=== PATIENT | male | born 1965 | race African-American/Black ===

== ENCOUNTER 2017-08-20 06:24 | Inpatient (IN) | payer BC ==
[2017-08-20] MEDS ORDERED: MIDAZOLAM HCL 2 MG/2 ML SINGLE DOSE VIAL ONE (06:32)
[2017-08-20] MEDS ORDERED: DEXAMETHASONE SOD PHOSPHATE/PF 10 MG/ML SDV ONE (06:32)
[2017-08-20] MEDS ORDERED: SODIUM CHLORIDE 0.9% P/F 10 ML VIAL IJ ONE (06:32)
[2017-08-20] MEDS ORDERED: ROPIVACAINE HCL 0.5% 30ML VIAL ONE (06:32)
[2017-08-20 06:49] VITALS: BMI 22.1
[2017-08-20] MEDS ORDERED: TRANEXAMIC ACID 1000 MG/10 ML VIAL IVPUSH ONE (06:49)
[2017-08-20] MEDS ORDERED: GABAPENTIN 300 MG CAPSULE (FP) PO ONE (06:49)
[2017-08-20] MEDS ORDERED: CEFAZOLIN 2 GM in DEXTROSE 5%-WATER - 50 ML IVPB ONE (06:49)
[2017-08-20] MEDS ORDERED: CELECOXIB 200 MG CAPSULE PO ONE (06:49)
[2017-08-20] MEDS ORDERED: oxyCODONE HCL 10 MG SUSTAINED ACTING TABLET ONE (07:00)
[2017-08-20] MEDS ORDERED: VANCOMYCIN 1,000 MG VIAL (RESTRICTED TO ID ONLY) ONE (07:15)
[2017-08-20] MEDS ORDERED: ceFAZolin SODIUM 1 GM VIAL ONE (07:15)
[2017-08-20] MEDS ORDERED: oxyCODONE HCL 10 MG SUSTAINED ACTING TABLET PO ONE (07:30)
--- NOTE | 2017-08-20 07:52 | HP ---
Satellite PMH - Chief Complaint Chief Complaint: left knee pain - Past Medical History Allergies/Adverse Reactions: Allergies Allergy/AdvReac Type Severity Reaction Status Date / Time No Known Drug Allergies Allergy Verified 04/05/16 15:53 ELECTRIC CRANE OPERATOR: Yes: Alzheimer's, CVA, Dementia, Migraine, Multiple Sclerosis, Peripheral Neuropathy, Parkinson's, Seizure, Syncope, TIA, Vertigo, Other Cardiovascular: Yes: AFIB, Aneurysm, Aortic Insufficiency, Aortic Stenosis, CAD , CHF, Deep Vein Thrombosis, HTN, Hyperlipdemia, MO, Mitral Insufficiency, Mitral Stenosis, Murmur, Pulmonary Hypertension, Other - Current Medications Current Medications: Home Medications Medication Instructions Recorded Ibuprofen [Advil -] 400 mg PO ASDIR PRN 08/13/17 Satellite Physical Exam - Physical Examination Vital Signs: Vital Signs Period Temp Pulse Resp BP Sys/Hinds Pulse Ox Last 24 Hr 97.8 F 76 18 137/90 General Appearance: Well Nourished, Well Developed, Alert & Oriented x3 ENT: Clear Lung: Normal air movement Heart: Regular rate & rhythm Extremities: Other (left knee- + swelling, + ttp, decr rom, nvi xrays show grade 4 tricompartmental djd) Neurological: Intact, Alert, Oriented Satellite Impression/Plan - Impression/Plan Impression: left knee djd Operative Procedure: left j carlos tkr Date to be Performed: 08/20/17
[2017-08-20] MEDS ORDERED: BUPIVACAINE HCL/PF 0.5% (5MG/ML) 10 ML VIAL ONE (08:08)
[2017-08-20] MEDS ORDERED: ONDANSETRON 4 MG/2 ML VIAL IVPUSH PRN (09:59)
[2017-08-20] MEDS ORDERED: MAGNESIUM HYDROX 2400MG/30ML ORAL SUSPENSION 30 ML CUP PO PRN (09:59)
[2017-08-20] MEDS ORDERED: MAG HYDROX/AL HYDROX/SIMETH 30 ML UNIT-DOSE CUP PO PRN (09:59)
[2017-08-20] MEDS ORDERED: LACTATED RINGERS SOLUTION 1,000 ML IV SCH (10:00)
--- NOTE | 2017-08-20 10:02 | OP ---
Operative Note - Note: Operative Date: 08/20/17 (rodney) Pre-Operative Diagnosis: left knee djd Operation: left j carlos tkr Post-Operative Diagnosis: Same as Pre-op Surgeon: Ag Kuhn Software Test Engineer: Frantz Rocha Anesthesiologist/WATCH MECHANIC: Rajiv Merlos Anesthesia: Spinal, Local Specimens Removed: bone fragments Estimated Blood Loss (mls): 100 Operative Report Dictated: Yes
[2017-08-20] MEDS ORDERED: oxyCODONE HCL 5 MG TABLET PO PRN (11:05)
[2017-08-20] MEDS: ACETAMINOPHEN 325 MG TABLET (FP) PO SCH ×3 (11:17→23:02)
[2017-08-20] MEDS: SENNOSIDES/DOCUSATE COMBO (SENNA PLUS) TABLET (UD) PO SCH ×2 (13:41→22:01)
[2017-08-20] MEDS: MULTIVITAMINS (DAILY MVI) TABLET (FP) PO SCH (13:42)
[2017-08-20] MEDS: PANTOPRAZOLE 40 MG TABLET (FP) PO SCH (13:42)
--- NOTE | 2017-08-20 14:40 | SPEC ---
DATE OF OPERATION: 08/20/2017 PREOPERATIVE DIAGNOSIS: Degenerative joint disease, left knee. POSTOPERATIVE DIAGNOSIS: Degenerative joint disease, left knee. PROCEDURE: Left total knee replacement with robotic-assisted navigation (Makoplasty). SURGICAL ATTENDING: Doyle Pugh MD MANUFACTURING COST ESTIMATOR: PEPITO Brown and Ag Kuhn MD ANESTHESIA: Regional and spinal. CLOSURE: A cemented Triathlon knee system with a 3 femur, 3 tibia, 11 polyethylene, 35 patella, number 1 Vicryl fascia, 0 and 2-0 subcutaneous, 3-0 Monocryl subcuticular with skin glue for skin, 4-0 undyed Vicryl for pin sites. ESTIMATED BLOOD LOSS: Negligible. TOURNIQUET TIME: 21 minutes COMPLICATIONS: None. CONDITION: To recovery room in stable condition. DESCRIPTION OF OPERATIVE PROCEDURE: Patient was taken to the operating room on August 20, 2017. Regional and general anesthesia was administered by the anesthesiologist. IV Kefzol and TXA were administered by the anesthesiologist. Well-padded pneumatic tourniquet was placed on the proximal thigh. The left lower extremity was prepped and draped in the usual sterile fashion. The leg was exsanguinated with an Esmarch bandage, and tourniquet was inflated to 275 mmHg. A 12 to 15-cm longitudinal midline incision was incised while centered over the patella. The dissection was carried down to the level of the extensor mechanism with sufficient flaps made to adequately perform the procedure. A medial parapatellar arthrotomy was then performed. We made a cuff of tissue on the patella for later closure. The patella was inverted, the knee was flexed up. The fat pad was excised. The subperiosteal dissection was on the anteromedial proximal tibia around towards the direction of the MCL. The ACL and the PCL were transected and debrided. The meniscal remnants of the medial and lateral meniscus were debrided and removed. This allowed the knee to be able to "be brought forward." The checkpoints were malleted into the tibia and into the femur. Two threaded pins were drilled anteroposteriorly proximal to the knee through the previous incision, through the anterior cortex, then just engaging the posterior cortex. To these pins was assembled the femoral navigation array. One handbreadth below the tibial tubercle, 2 stab incisions were used to drill 2 threaded pins in parallel fashion into the tibia, again through the anterior cortex and just engaging the posterior cortex. To these pins was fastened the tibial arrays. The knee was then registered with the navigation device with center of rotation of the hip, medial and lateral malleoli, both checkpoints, and multiple points on both the femur and the tibia to ensure excellent registration. The navigation device was directed off the "top of the bubbles" on both the femur and the tibia. The navigation passed within less than 0.5 mm to plan. The knee was then thoroughly inspected to remove all osteophytes both medially, laterally, and on the femur and the tibia, and whatever osteophytes were available for dissection. The knee was then taken to extension and to flexion, and stressed in both varus and valgus to assess flexion gaps. The virtual position of the components on the navigation device were then manipulated to optimize the position and to ensure equal gaps in both flexion and extension, and both medially and laterally. The robot was then brought into the field and was registered. The cuts were then made both on the femur and on the tibia as to plan. All osteophytes posteriorly were then removed as well. The gaps were then measured again in flexion and extension to be equal in both flexion and extension and medial and laterally. The femoral notch was then made, as we were doing a posterior stabilizing component, with the appropriate sized box. Trial reduction of the femur achieved excellent [id number] fit. A tibial baseplate of appropriate polyethylene thickness was "floated in the knee." It was ensured to be in the excellent position by navigation devices and was pinned in place. The knee was taken through a range of motion, and found to have excellent stability throughout flexion and extension. The patella was calibrated for thickness and osteotomized down to the appropriate level. The appropriate lollipop was used to drill the lug holes in the patella and the trial button was applied. The knee was taken through a range of motion and found to have excellent tracking of the patella, and patella from full extension to full flexion. Trial components were removed, the keel was punched and drilled, and a sclerotic bone on the tibia was drilled to help with cement interdigitation. The knee was thoroughly irrigated with the pulse antibiotic ranch cook. The real components were then cemented in using monitored arrangement cement techniques with antibiotic cement, and pressurization and extension. After the cement was hardened, the knee was thoroughly inspected to remove any extra cement. The real polyethylene component was then clipped into place. Range of motion, stability, and tracking were as described earlier. The checkpoints and the pins were removed. The knee was thoroughly irrigated with antibiotic irrigation. Vancomycin powder was placed into the knee for antibiotic prophylaxis. The medial parapatellar arthrotomy was then closed using number 1 Vicryl interrupted suture. After closure of the deep layer, the knee was taken through a range of motion, and found to have excellent stability of the patella with no dislocation and no undue tension on the repair. The subcutaneous was pulse antibiotic irrigated, and was then closed with 2-0 Vicryl, 3-0 Monocryl subcuticular with the skin glue for the skin. The distal tibial pin site was irrigated thoroughly as well and then closed with 4-0 undyed Vicryl. A sterile Aquacel dressing was applied, followed by a Wolff dressing. Tourniquet was deflated. Total tourniquet time was approximately 75 minutes. No complications. Patient was awakened from anesthesia and transferred to recovery room in stable condition. Postoperative x-rays revealed excellent position of the components. Dorothy [id number]
[2017-08-20] MEDS: CEFAZOLIN 2 GM/D5W 2 GM/50 ML ML IVPB SCH ×2 (16:14→23:02)
[2017-08-20] MEDS: oxyCODONE HCL 5 MG TABLET PO PRN (19:53)
[2017-08-21] MEDS: ACETAMINOPHEN 325 MG TABLET (FP) PO SCH ×4 (05:47→16:50)
[2017-08-21] MEDS: oxyCODONE HCL 5 MG TABLET PO PRN ×5 (05:48→20:21)
--- NOTE | 2017-08-21 08:41 | PN ---
Progress Note (short form) - Note Progress Note: Ortho Pt seen and examined s/p left j carlos tkr pod #1 Selected Entries 08/21/17 06:00 Temperature 97.6 F Pulse Rate 74 Respiratory 20 Rate Blood Pressure 142/74 Laboratory Tests 08/21/17 07:55 WBC Pending Hgb Pending Hct Pending Plt Count Pending dressing c/d/i, calf soft, nt rom 0-70, nvi a/p PT dvt ppx pain control d/c home tomorrow if stable
[2017-08-21 08:47] LABS: MCH 30.4 pg (25.7-33.7); MCHC 33.9 g/dl (32.0-35.9); MEAN CELL VOLUME 89.6 fl (80-96); MEAN PLT VOLUME 8.2 fl (7.5-11.1); PLATELET COUNT 190 K/MM3 (134-434); RDW 13.5 % (11.9-15.9); WHITE BLOOD COUNT 11.6 K/mm3 (4.0-10.8)
[2017-08-21] MEDS: ASPIRIN 325 MG TABLET PO SCH (08:54)
[2017-08-21] MEDS: MULTIVITAMINS (DAILY MVI) TABLET (FP) PO SCH (09:55)
[2017-08-21] MEDS: SENNOSIDES/DOCUSATE COMBO (SENNA PLUS) TABLET (UD) PO SCH ×2 (09:55→21:42)
[2017-08-21] MEDS: PANTOPRAZOLE 40 MG TABLET (FP) PO SCH (09:55)
--- NOTE | 2017-08-21 12:00 | PN ---
Progress Note (short form) - Note Progress Note: S: Pt. doing well without complaints O: VAS7-8/10 (states that's tolerable) A/P: POD#1 s/p Left TKR 1. continue pain meds as ordered. Encouraged use to get the pain level down 2. No anesthetic complications
[2017-08-22] MEDS: oxyCODONE HCL 5 MG TABLET PO PRN ×3 (05:00→12:14)
[2017-08-22 06:14] VITALS: BP 121/82; PULSE 83; TEMP 99.1
--- NOTE | 2017-08-22 08:07 | PN ---
Progress Note (short form) - Note Progress Note: Ortho Pt seen and examined s/p left j carlos tkr pod #2 Selected Entries 08/22/17 06:00 Temperature 99.1 F Pulse Rate 83 Respiratory 18 Rate Blood Pressure 121/82 Laboratory Tests 08/21/17 07:55 WBC 11.6 H Hgb 12.4 Hct 36.6 Plt Count 190 dressing c/d/i, calf soft, nt rom 0-70, nvi a/p PT dvt ppx pain control d/c home today f/u in 1 week
[2017-08-22] MEDS: ASPIRIN 325 MG TABLET PO SCH (08:08)
--- NOTE | 2017-08-22 08:08 | DS ---
Physical Examination Vital Signs: Vital Signs Temperature 99.1 F 08/22/17 06:00 Pulse Rate 83 08/22/17 06:00 Respiratory Rate 18 08/22/17 06:00 Blood Pressure 121/82 08/22/17 06:00 O2 Sat by Pulse Oximetry (%) 97 08/22/17 06:13 Labs: CBC, BMP 08/21/17 07:55 Discharge Summary Reason For Visit: OSTEOARTHRITIS Procedures: Principal: s/p left j carlos tkr Hospital Course: admitted for elective left j carlos tkr, uneventful post-op, stable for d/c Condition: Good - Instructions Diet, Activity, Other Instructions: Post-op Instructions-Total Knee Replacement Call the office for a follow-up appointment in 1 week - [phone] Aspirin 325mg daily for 6 weeks. Pain medication was sent into your pharmacy. Apply Graduated Compression Stockings (TEDs) to both lower extremities- remove daily for hygiene ONLY Apply Sequential Compression Device (SCDs) to both Lower extremities remove for PT and hygiene ONLY Apply cold packs to affected area for 15 minutes every 2 hours. Physical Therapist will come to your home for the first 5 days. You will be set up with outpatient PT at your first post-operative visit. Patient may ambulate as tolerated-encourage self care (at least every 2-3 hours while awake) with walker or cane Maintain Aquacel (waterproof) dressing to operative wound (will be removed by surgeon at first office visit) Shower with Aquacel dressing in place-if Aquacel integrity compromised, remove and apply dry sterile dressing and notify Orthopedist. DO NOT SHOWER unless Orthopedists approves without Aquacel dressing CONTACT THE OFFICE FOR ANY CHANGE IN YOUR CONDITION (for example-fever greater than 102 degrees, excessive bleeding from operative site, purulent drainage, severe swelling or pain) GO TO THE EMERGENCY ROOM IF THERE IS A MEDICAL EMERGENCY Knee Precautions: * Keep a rolled towel under affected heel while in bed or chair (to keep knee in extension) * Keep affected leg elevated except during mealtimes * DO NOT PLACE PILLOW UNDER AFFECTED KNEE * If you have any questions, please do not hesitate to call the office - . Referrals: Ag Kuhn MD [Staff Physician] - Disposition: VNS/HOME HEALTH CARE - Home Medications Comprehensive Discharge Medication List: Ambulatory Orders Ibuprofen [Motrin -] 600 mg PO QID #28 tablet 04/10/17 Oxycodone HCl/Acetaminophen [Percocet 5-325 mg Tablet] 1 tab PO Q4H #12 tablet MDD 6 04/10/17 Ibuprofen [Advil -] 400 mg PO ASDIR PRN 08/13/17 Aspirin [ASA -] 325 mg PO DAILY@0800 tablet 08/20/17 Oxycodone HCl/Acetaminophen [Percocet 5-325 mg Tablet] 1 - 2 tab PO Q6H #50 tab MDD 8 08/20/17
[2017-08-22 08:26] LABS: MCH 29.5 pg (25.7-33.7); MCHC 33.2 g/dl (32.0-35.9); MEAN CELL VOLUME 88.8 fl (80-96); MEAN PLT VOLUME 8.3 fl (7.5-11.1); PLATELET COUNT 161 K/MM3 (134-434); RDW 13.5 % (11.9-15.9); WHITE BLOOD COUNT 9.6 K/mm3 (4.0-10.8)
[2017-08-22] MEDS: ACETAMINOPHEN 325 MG TABLET (FP) PO SCH (10:53)
[2017-08-22] MEDS: SENNOSIDES/DOCUSATE COMBO (SENNA PLUS) TABLET (UD) PO SCH (10:54)
[2017-08-22] MEDS: PANTOPRAZOLE 40 MG TABLET (FP) PO SCH (10:54)
[2017-08-22] MEDS: MULTIVITAMINS (DAILY MVI) TABLET (FP) PO SCH (10:54)
--- NOTE | 2017-08-23 09:59 | PATH ---
Surgical Pathology Report Patient Name: ELIEZER FUENTES Med. Rec. #: [id number] /Age/Gender: 1965 (Age: 52) / M Account: [id number] Location: [facility] Taken: 08/21/2017 Received: 08/21/2017 Reported: 08/23/2017 Physicians: Doyle Pugh M.D. Specimen(s) Received BONE LEFT KNEE Clinical History Left knee osteoarthritis Final Diagnosis BONE AND SOFT TISSUE, LEFT KNEE, REPLACEMENT: DEGENERATIVE JOINT DISEASE. Electronically Signed Mikhail Chou M.D. Gross Description Received in formalin labeled "bone left knee," is an 11.0 x 9.0 x 2.0 cm aggregate of multiple terrazas, irregular portions of bone and soft tissue, consistent with knee bones. There is a 2 cm in greatest dimension area of eburnation identified. The remaining articular surfaces are terrazas-yellow and focally granular. The underlying trabecular bone is yellow and hard. Glass Breaker sections are submitted in one cassette, following decalcification. 08/21/2017 [facility]08/21/2017
== END 2017-08-22 12:30 | disposition home health service (06) | DRG 470 ==
LOC: FM/S 06:24
PROVIDERS: ADMIT Orthopaedic Surgery; ATTEND Orthopaedic Surgery
PROC: 8E0Y0CZ Robotic Assisted Procedure of Lower Extremity, Open Approach (ICD-10-PCS; 2017-08-20)
PROC: 0SRD0J9 Replacement of Left Knee Joint with Synthetic Substitute, Cemented, Open Approach (ICD-10-PCS; principal; 2017-08-20 08:30)
DX: M17.12 Unilateral primary osteoarthritis, left knee (principal); Z87.891 Personal history of nicotine dependence
CPT/HCPCS: 36415; 73560-TC-LT; 85027; 88304-TC; 88311-TC; 94010; 94760; 97116-GP; 97162-GP

== ENCOUNTER 2017-10-21 11:16 | Emergency (ER) | payer OTHER, BC ==
[2017-10-21 11:39] VITALS: BP 114/71; PULSE 71; TEMP 97.6; BMI 22.0
[2017-10-21] MEDS ORDERED: KETOROLAC TROMETHAMINE 60 MG/2 ML VIAL IM ONE (12:57)
[2017-10-21] MEDS ORDERED: KETOROLAC TROMETHAMINE 60 MG/2 ML VIAL ONE (13:02)
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
== END 2017-10-21 13:13 | disposition home or self-care (01) ==
LOC: JERFT 11:16
PROC: 3E0233Z Introduction of Anti-inflammatory into Muscle, Percutaneous Approach (ICD-10-PCS; principal; 2017-10-21)
DX: M54.5 Low back pain (principal); V44.6XXA Car passenger injured in collision with heavy transport vehicle or bus in traffic accident, initial encounter; Y92.414 Local residential or business street as the place of occurrence of the external cause; Y93.89 Activity, other specified; Y99.8 Other external cause status; Z85.46 Personal history of malignant neoplasm of prostate
CPT/HCPCS: 99281-25

== ENCOUNTER 2022-01-22 04:23 | Day surgery (SDC) | payer OTHER, BC ==
[2022-01-18 13:01] VITALS: BMI 24.3
[2022-01-22] MEDS ORDERED: DEXAMETHASONE SOD PHOSPHATE 4 MG/1 ML VIAL ONE (14:55)
[2022-01-22] MEDS ORDERED: KETOROLAC TROMETHAMINE 30 MG/1 ML VIAL ONE (14:55)
[2022-01-22] MEDS ORDERED: PROPOFOL 20 ML ONE (14:55)
[2022-01-22 15:29] VITALS: TEMP 97.5
[2022-01-22 17:59] VITALS: BP 115/78; PULSE 82
== END 2022-01-22 16:25 | disposition home or self-care (01) ==
LOC: JASU-SURG 04:23
PROVIDERS: ATTEND Urology
PROC: 0TF3XZZ Fragmentation in Right Kidney Pelvis, External Approach (ICD-10-PCS; principal; 2022-01-22 13:00)
DX: N20.0 Calculus of kidney (principal)

== ENCOUNTER 2022-05-01 10:04 | Emergency (ER) | payer BC, OTHER ==
[2022-05-01 10:16] VITALS: BP 124/87; PULSE 94; RESP 18; TEMP 97.6; BMI 25.8
== END 2022-05-01 12:40 | disposition home or self-care (01) ==
LOC: JERFT 10:04
PROC: 0VQSXZZ Repair Penis, External Approach (ICD-10-PCS; principal; 2022-05-01)
DX: S31.20XA Unspecified open wound of penis, initial encounter (principal); Y99.9 Unspecified external cause status
CPT/HCPCS: 12001-25; 99282-25

== ENCOUNTER 2024-01-02 16:23 | Inpatient (IN) | payer OTHER ==
[2024-01-02] MEDS ORDERED: ACETAMINOPHEN INJECTION 100 ML IVPB ONE (17:59)
[2024-01-02] MEDS ORDERED: LIDOCAINE 4% PATCH TP ONE (18:00)
[2024-01-02] MEDS: ACETAMINOPHEN 1000 MG/100 ML BAG IVPB ONE (18:44)
[2024-01-02] MEDS: LIDOCAINE 4% PATCH TP ONE (18:44)
[2024-01-02 18:49] LABS: BASO % 0.6 % (0-2.0); EOS % 6.5 % (0-4.5); HEMATOCRIT 44.2 % (35.4-49); HEMOGLOBIN 14.4 GM/dL (11.7-16.9); LYMPH % 30.5 % (8-40); MCH 28.6 pg (25.7-33.7); MCHC 32.5 g/dl (32.0-35.9); MEAN PLT VOLUME 7.1 fl (7.5-11.1); MONO % 16.9 % (3.8-10.2); NEUT % 45.5 % (42.8-82.8); PLATELET COUNT 210 10^3/uL (134-434); RBC 5.02 M/mm3 (4.00-5.60); RDW 15.5 % (11.9-15.9); WHITE BLOOD COUNT 5.1 K/mm3 (4.0-10.0)
[2024-01-02 19:11] LABS: POTASSIUM 4.1 mmol/L (3.5-5.1)
[2024-01-02 19:17] LABS: ALBUMIN 3.2 g/dl (3.4-5.0)
[2024-01-02 19:20] LABS: CREATININE 1.1 mg/dL (0.55-1.3)
[2024-01-02 19:22] LABS: BILIRUBIN,TOTAL 0.4 mg/dL (0.2-1); TOT PROT 6.8 g/dl (6.4-8.2)
[2024-01-02] MEDS: LIDOCAINE PATCH REMOVAL MC SCH (21:34)
[2024-01-02] MEDS: CLOPIDOGREL BISULFATE 300 MG TABLET PO ONE (22:30)
[2024-01-02] MEDS: ASPIRIN 81 MG CHEWABLE TABLETS PO ONE (22:30)
[2024-01-02] MEDS: MELATONIN 5 MG TABLETS PO ONE (22:30)
[2024-01-02] MEDS: KETOROLAC TROMETHAMINE 15 MG/ML VIAL IVPUSH ONE (22:30)
[2024-01-03 01:00] VITALS: RESP 18; BMI 24.0
[2024-01-03 07:38] LABS: BASO % 0.5 % (0-2.0); EOS % 8.8 % (0-4.5); HEMATOCRIT 47.3 % (35.4-49); HEMOGLOBIN 15.8 GM/dL (11.7-16.9); LYMPH % 36.2 % (8-40); MCHC 33.5 g/dl (32.0-35.9); MEAN CELL VOLUME 86.7 fl (80-96); MEAN PLT VOLUME 7.5 fl (7.5-11.1); MONO % 16.9 % (3.8-10.2); NEUT % 37.6 % (42.8-82.8); PLATELET COUNT 238 10^3/uL (134-434); RBC 5.45 M/mm3 (4.00-5.60); RDW 15.5 % (11.9-15.9); WHITE BLOOD COUNT 5.4 K/mm3 (4.0-10.0)
[2024-01-03 07:47] LABS: CALCIUM 9.1 mg/dL (8.5-10.1)
[2024-01-03 07:48] LABS: MAGNESIUM 2.2 mg/dL (1.8-2.4)
[2024-01-03 07:49] LABS: BLOOD UREA NITROGEN 25.6 mg/dL (7-18)
[2024-01-03 07:50] LABS: ALBUMIN 3.5 g/dl (3.4-5.0); CREATININE 1.3 mg/dL (0.55-1.3)
[2024-01-03 07:52] LABS: TOT PROT 7.4 g/dl (6.4-8.2)
[2024-01-03 07:53] LABS: PHOSPHOROUS 4.2 mg/dL (2.5-4.9)
[2024-01-03 07:54] LABS: BILIRUBIN,TOTAL 0.6 mg/dL (0.2-1)
[2024-01-03] MEDS ORDERED: ENOXAPARIN NA (PORCINE) 40 MG/0.4 ML DISP.SYRIN SQ SCH (10:00)
[2024-01-03] MEDS: ASPIRIN 81 MG CHEWABLE TABLETS PO SCH (10:12)
[2024-01-03] MEDS: ACETAMINOPHEN 1000 MG/100 ML BAG IVPB PRN (10:13)
[2024-01-03] MEDS: LISINOPRIL 20 MG TABLET PO SCH (11:11)
[2024-01-03] MEDS: ATORVASTATIN CA 40 MG TABLET (FP) PO SCH (21:50)
[2024-01-04 06:50] LABS: BASO % 0.5 % (0-2.0); EOS % 8.8 % (0-4.5); HEMATOCRIT 43.2 % (35.4-49); HEMOGLOBIN 14.1 GM/dL (11.7-16.9); LYMPH % 32.1 % (8-40); MCH 28.5 pg (25.7-33.7); MCHC 32.7 g/dl (32.0-35.9); MEAN CELL VOLUME 87.1 fl (80-96); MEAN PLT VOLUME 7.3 fl (7.5-11.1); MONO % 12.8 % (3.8-10.2); NEUT % 45.8 % (42.8-82.8); PLATELET COUNT 227 10^3/uL (134-434); RBC 4.96 M/mm3 (4.00-5.60); RDW 14.9 % (11.9-15.9); WHITE BLOOD COUNT 5.6 K/mm3 (4.0-10.0)
[2024-01-04 07:34] LABS: POTASSIUM 3.8 mmol/L (3.5-5.1)
[2024-01-04 07:40] LABS: BLOOD UREA NITROGEN 25.5 mg/dL (7-18); CALCIUM 8.7 mg/dL (8.5-10.1)
[2024-01-04 07:41] LABS: ALBUMIN 3.2 g/dl (3.4-5.0)
[2024-01-04 07:44] LABS: BILIRUBIN,TOTAL 0.4 mg/dL (0.2-1); CREATININE 1.2 mg/dL (0.55-1.3); TOT PROT 6.8 g/dl (6.4-8.2)
[2024-01-04] MEDS: CLOPIDOGREL BISULFATE 75 MG TABLET (FP) PO ONE (17:02)
[2024-01-04 18:19] VITALS: BP 117/75; PULSE 80; TEMP 97.5
[2024-01-04] MEDS ORDERED: CARVEDILOL 6.25 MG TABLET (FP) PO SCH (22:00)
[2024-01-05] MEDS ORDERED: CLOPIDOGREL BISULFATE 75 MG TABLET (FP) PO SCH (10:00)
== END 2024-01-04 18:56 | disposition home health service (06) | DRG 65 ==
LOC: JER 16:23 → JERBED 20:54 → J4W 01-03 00:36
PROVIDERS: ADMIT Internal Medicine; ATTEND Internal Medicine
DX: I63.9 Cerebral infarction, unspecified (principal); I50.22 Chronic systolic (congestive) heart failure; I69.351 Hemiplegia and hemiparesis following cerebral infarction affecting right dominant side; R91.8 Other nonspecific abnormal finding of lung field; I10 Essential (primary) hypertension; J45.909 Unspecified asthma, uncomplicated
CPT/HCPCS: 36415; 70450-TC; 70551-TC; 71275-TC; 72157-TC; 74174-TC; 80053; 80061; 82550; 82553; 83036; 83735; 84100; 84484; 85025; 93005; 93010; 93306-TC; 93880-TC; 97116-GP; 97162-GP; 99285-25; J0131; Q9967

== ENCOUNTER 2024-02-19 10:07 | Inpatient (IN) | payer OTHER, BC ==
[2024-02-19 11:51] LABS: BASO % 0.9 % (0-2.0); HEMATOCRIT 37.9 % (35.4-49); HEMOGLOBIN 12.6 GM/dL (11.7-16.9); LYMPH % 29.4 % (8-40); MCHC 33.2 g/dl (32.0-35.9); MEAN CELL VOLUME 87.3 fl (80-96); MEAN PLT VOLUME 7.1 fl (7.5-11.1); MONO % 19.2 % (3.8-10.2); NEUT % 44.5 % (42.8-82.8); PLATELET COUNT 258 10^3/uL (134-434); RBC 4.34 M/mm3 (4.00-5.60)
[2024-02-19 11:55] LABS: INR 0.97 (0.83-1.09); PROTHROMBIN TIME (PATIENT) 11.2 SEC (9.7-13.0)
[2024-02-19 11:59] LABS: ACTIVATED PTT 26.5 SECONDS (25.2-36.5)
[2024-02-19 12:01] LABS: EPI CELLS 32 /uL (0-25.1); HYALINE CASTS 1 /uL (0-3.1); PH,URINE 5.5 (5.0-8.0); URINE APPEARANCE CLOUDY; URINE BACTERIA 95 /uL (0-1359); URINE BILIRUBIN NEGATIVE (NEGATIVE); URINE COLOR YELLOW; URINE GLUCOSE (UA) NEGATIVE (NEGATIVE); URINE KETONE TRACE (NEGATIVE); URINE LEUK ESTERASE 3+ (NEGATIVE); URINE NITRITE NEGATIVE (NEGATIVE); URINE PROTEIN TRACE (NEGATIVE); URINE RBC 40 /uL (0-23.9); URINE UROBILINOGEN 0.2 mg/dL (0.2-1.0); URINE WBC 1784 /uL (0-25.8)
[2024-02-19 12:09] LABS: POTASSIUM 4.8 mmol/L (3.5-5.1)
[2024-02-19 12:11] LABS: CALCIUM 8.6 mg/dL (8.5-10.1)
[2024-02-19 12:12] LABS: ALBUMIN 3.3 g/dl (3.4-5.0)
[2024-02-19 12:13] LABS: BLOOD UREA NITROGEN 20.7 mg/dL (7-18)
[2024-02-19 12:15] LABS: CREATININE 1.2 mg/dL (0.55-1.3)
[2024-02-19 12:16] LABS: BILIRUBIN,TOTAL 0.4 mg/dL (0.2-1); TOT PROT 7.4 g/dl (6.4-8.2)
[2024-02-19] MEDS: SODIUM CHLORIDE 1,000 ML IV SCH (13:05)
[2024-02-19 14:35] LABS: EPI CELLS >36 /uL (0-25.1); HYALINE CASTS 4 /uL (0-3.1); URINE APPEARANCE CLOUDY; URINE BACTERIA 179 /uL (0-1359); URINE BILIRUBIN NEGATIVE (NEGATIVE); URINE COLOR YELLOW; URINE GLUCOSE (UA) NEGATIVE (NEGATIVE); URINE KETONE TRACE (NEGATIVE); URINE LEUK ESTERASE 3+ (NEGATIVE); URINE NITRITE NEGATIVE (NEGATIVE); URINE PROTEIN TRACE (NEGATIVE); URINE RBC 27 /uL (0-23.9); URINE WBC 962 /uL (0-25.8)
[2024-02-19] MEDS ORDERED: ASPIRIN 81 MG CHEWABLE TABLETS ONE (17:12)
[2024-02-19] MEDS ORDERED: CLOPIDOGREL BISULFATE 75 MG TABLET (FP) ONE (17:12)
[2024-02-19] MEDS: ASPIRIN 81 MG CHEWABLE TABLETS PO SCH (17:13)
[2024-02-19] MEDS: CLOPIDOGREL BISULFATE 75 MG TABLET (FP) PO SCH (17:13)
[2024-02-19] MEDS ORDERED: ATORVASTATIN CA 40 MG TABLET (FP) ONE (23:34)
[2024-02-19] MEDS ORDERED: CARVEDILOL 6.25 MG TABLET (FP) ONE (23:34)
[2024-02-19] MEDS: CARVEDILOL 6.25 MG TABLET (FP) PO SCH (23:38)
[2024-02-19] MEDS: ATORVASTATIN CA 40 MG TABLET (FP) PO SCH (23:38)
[2024-02-20 00:54] VITALS: BMI 23.5
[2024-02-20 07:43] LABS: POTASSIUM 3.8 mmol/L (3.5-5.1)
[2024-02-20 07:49] LABS: ALBUMIN 2.8 g/dl (3.4-5.0); CALCIUM 8.5 mg/dL (8.5-10.1)
[2024-02-20 07:51] LABS: CREATININE 1.1 mg/dL (0.55-1.3)
[2024-02-20 07:53] LABS: BILIRUBIN,TOTAL 0.2 mg/dL (0.2-1); TOT PROT 6.3 g/dl (6.4-8.2)
[2024-02-20 08:14] LABS: BASO % 0.5 % (0-2.0); EOS % 7.2 % (0-4.5); HEMOGLOBIN 11.5 GM/dL (11.7-16.9); LYMPH % 28.2 % (8-40); MCH 29.3 pg (25.7-33.7); MCHC 33.8 g/dl (32.0-35.9); MEAN CELL VOLUME 86.7 fl (80-96); MEAN PLT VOLUME 7.2 fl (7.5-11.1); MONO % 16.4 % (3.8-10.2); NEUT % 47.7 % (42.8-82.8); PLATELET COUNT 246 10^3/uL (134-434); RBC 3.92 M/mm3 (4.00-5.60); RDW 14.9 % (11.9-15.9); WHITE BLOOD COUNT 4.5 K/mm3 (4.0-10.0)
[2024-02-20] MEDS: ACETAMINOPHEN 325 MG TABLET (FP) PO PRN (09:43)
[2024-02-20] MEDS: ENOXAPARIN NA (PORCINE) 40 MG/0.4 ML DISP.SYRIN SQ SCH (09:45)
[2024-02-20] MEDS: LISINOPRIL 20 MG TABLET PO SCH (09:45)
[2024-02-20] MEDS: CEFAZOLIN 1 GM in DEXTROSE 5%-WATER - 50 ML IVPB SCH (11:20)
[2024-02-20] MEDS: ATORVASTATIN CA 80 MG TABLET (FP) PO SCH (21:08)
[2024-02-21 07:01] LABS: HEMATOCRIT 35.7 % (35.4-49); HEMOGLOBIN 11.8 GM/dL (11.7-16.9); MCH 28.6 pg (25.7-33.7); MEAN CELL VOLUME 86.8 fl (80-96); MEAN PLT VOLUME 7.4 fl (7.5-11.1); PLATELET COUNT 284 10^3/uL (134-434); RBC 4.11 M/mm3 (4.00-5.60); RDW 14.7 % (11.9-15.9)
[2024-02-21 07:25] LABS: POTASSIUM 4.1 mmol/L (3.5-5.1)
[2024-02-21 07:27] LABS: CALCIUM 8.6 mg/dL (8.5-10.1)
[2024-02-21 07:28] LABS: BLOOD UREA NITROGEN 17.5 mg/dL (7-18)
[2024-02-21 07:31] LABS: CREATININE 1.2 mg/dL (0.55-1.3); PHOSPHOROUS 3.5 mg/dL (2.5-4.9)
[2024-02-21 07:34] LABS: BILIRUBIN,TOTAL 0.2 mg/dL (0.2-1); TOT PROT 6.6 g/dl (6.4-8.2)
[2024-02-21] MEDS: ASPIRIN COATED 81 MG TABLET.EC PO SCH (09:52)
[2024-02-21] MEDS: CEFAZOLIN 1 GM in DEXTROSE 5%-WATER - 50 ML IVPB SCH (09:52)
[2024-02-22 06:54] LABS: MCH 28.3 pg (25.7-33.7); MCHC 33.3 g/dl (32.0-35.9); MEAN PLT VOLUME 7.4 fl (7.5-11.1); PLATELET COUNT 297 10^3/uL (134-434); RBC 4.23 M/mm3 (4.00-5.60); RDW 14.5 % (11.9-15.9); WHITE BLOOD COUNT 5.9 K/mm3 (4.0-10.0)
[2024-02-22 07:05] LABS: POTASSIUM 3.9 mmol/L (3.5-5.1)
[2024-02-22 07:08] LABS: CALCIUM 9.1 mg/dL (8.5-10.1)
[2024-02-22 07:09] LABS: BLOOD UREA NITROGEN 15.2 mg/dL (7-18)
[2024-02-22 07:12] LABS: CREATININE 1.1 mg/dL (0.55-1.3)
[2024-02-22] MEDS: MAGNESIUM 1GM/D5W 100ML - 100 ML IVPB IVPB ONE (12:14)
[2024-02-22] MEDS: LIDOCAINE 5% TOPICAL PATCH TP SCH (12:14)
[2024-02-22] MEDS: SODIUM CHLORIDE 2,000 ML IV STA (15:25)
[2024-02-22] MEDS: LIDOCAINE PATCH REMOVAL MC SCH (21:33)
[2024-02-23 08:18] LABS: POTASSIUM 4.7 mmol/L (3.5-5.1)
[2024-02-23 08:20] LABS: ALBUMIN 2.8 g/dl (3.4-5.0); CALCIUM 8.6 mg/dL (8.5-10.1)
[2024-02-23 08:21] LABS: BLOOD UREA NITROGEN 15.3 mg/dL (7-18); MAGNESIUM 2.1 mg/dL (1.8-2.4)
[2024-02-23 08:24] LABS: CREATININE 1.1 mg/dL (0.55-1.3); PHOSPHOROUS 3.8 mg/dL (2.5-4.9)
[2024-02-23 08:25] LABS: BILIRUBIN,TOTAL 0.4 mg/dL (0.2-1)
[2024-02-23 08:26] LABS: TOT PROT 6.2 g/dl (6.4-8.2)
[2024-02-23] MEDS: LISINOPRIL 20 MG TABLET PO SCH (11:14)
[2024-02-23 12:02] LABS: BASO % 0.6 % (0-2.0); EOS % 7.1 % (0-4.5); HEMATOCRIT 33.6 % (35.4-49); HEMOGLOBIN 11.3 GM/dL (11.7-16.9); LYMPH % 23.8 % (8-40); MCH 28.9 pg (25.7-33.7); MCHC 33.8 g/dl (32.0-35.9); MEAN CELL VOLUME 85.6 fl (80-96); MEAN PLT VOLUME 7.2 fl (7.5-11.1); MONO % 17.8 % (3.8-10.2); NEUT % 50.7 % (42.8-82.8); PLATELET COUNT 294 10^3/uL (134-434); RBC 3.93 M/mm3 (4.00-5.60); RDW 14.5 % (11.9-15.9); WHITE BLOOD COUNT 4.4 K/mm3 (4.0-10.0)
[2024-02-23 15:42] VITALS: RESP 18
[2024-02-24 08:16] LABS: BASO % 0.5 % (0-2.0); EOS % 8.8 % (0-4.5); HEMATOCRIT 32.8 % (35.4-49); HEMOGLOBIN 11.2 GM/dL (11.7-16.9); LYMPH % 34.4 % (8-40); MCH 28.8 pg (25.7-33.7); MEAN CELL VOLUME 84.7 fl (80-96); MEAN PLT VOLUME 7.1 fl (7.5-11.1); MONO % 18.3 % (3.8-10.2); PLATELET COUNT 294 10^3/uL (134-434); RBC 3.87 M/mm3 (4.00-5.60); RDW 14.4 % (11.9-15.9); WHITE BLOOD COUNT 4.5 K/mm3 (4.0-10.0)
[2024-02-24 08:50] LABS: BLOOD UREA NITROGEN 17.9 mg/dL (7-18)
[2024-02-24 08:52] LABS: CALCIUM 8.6 mg/dL (8.5-10.1)
[2024-02-24 08:53] LABS: ALBUMIN 2.8 g/dl (3.4-5.0)
[2024-02-24 08:56] LABS: CREATININE 1.1 mg/dL (0.55-1.3); PHOSPHOROUS 3.9 mg/dL (2.5-4.9)
[2024-02-24 08:58] LABS: BILIRUBIN,TOTAL 0.3 mg/dL (0.2-1); TOT PROT 6.2 g/dl (6.4-8.2)
[2024-02-24 20:51] VITALS: BP 125/79; PULSE 77; TEMP 97.5
== END 2024-02-24 23:16 | DRG 65 ==
LOC: JER 10:07 → JERBED 14:44 → J4W 23:49
PROVIDERS: ADMIT Internal Medicine; ATTEND Internal Medicine
DX: I63.89 Other cerebral infarction (principal); I50.22 Chronic systolic (congestive) heart failure; I69.354 Hemiplegia and hemiparesis following cerebral infarction affecting left non-dominant side; I25.10 Atherosclerotic heart disease of native coronary artery without angina pectoris; I11.0 Hypertensive heart disease with heart failure; R29.711 NIHSS score 11; J45.909 Unspecified asthma, uncomplicated; R82.71 Bacteriuria; I44.7 Left bundle-branch block, unspecified; B95.1 Streptococcus, group B, as the cause of diseases classified elsewhere; F12.90 Cannabis use, unspecified, uncomplicated; Z85.46 Personal history of malignant neoplasm of prostate
CPT/HCPCS: 36415; 70450-TC; 70544-TC; 70551-TC; 70552-TC; 73030-TC-LT-FY; 80048; 80053; 80061; 81003; 82136; 82550; 82607; 82962; 83036; 83735; 83918; 84100; 84484; 85025; 85027; 85610; 85730; 86850; 86900; 86901; 87077; 87086; 93005; 93010; 93306-TC; 97116-GP; 97162-GP; 99285-25

== ENCOUNTER 2024-03-24 11:47 | Emergency (ER) | payer OTHER, BC ==
[2024-03-24 12:09] VITALS: BMI 24.3
[2024-03-24 14:50] LABS: BASO % 0.5 % (0-2.0); EOS % 10.3 % (0-4.5); HEMATOCRIT 33.9 % (35.4-49); HEMOGLOBIN 11.5 GM/dL (11.7-16.9); LYMPH % 23.5 % (8-40); MCHC 33.9 g/dl (32.0-35.9); MEAN CELL VOLUME 82.6 fl (80-96); MEAN PLT VOLUME 7.1 fl (7.5-11.1); MONO % 16.3 % (3.8-10.2); NEUT % 49.4 % (42.8-82.8); PLATELET COUNT 315 10^3/uL (134-434); RBC 4.11 M/mm3 (4.00-5.60); RDW 14.5 % (11.9-15.9); WHITE BLOOD COUNT 6.7 K/mm3 (4.0-10.0)
[2024-03-24 14:52] LABS: INR 1.04 (0.83-1.09); PROTHROMBIN TIME (PATIENT) 11.7 SEC (9.7-13.0)
[2024-03-24 15:08] LABS: CHLORIDE 104 mmol/L (98-107); POTASSIUM 4.9 mmol/L (3.5-5.1); SODIUM 135 mmol/L (136-145)
[2024-03-24] MEDS ORDERED: ACETAMINOPHEN 325 MG TABLET (FP) ONE ×2 (15:08→18:00)
[2024-03-24 15:10] LABS: CALCIUM 9.1 mg/dL (8.5-10.1)
[2024-03-24] MEDS: ACETAMINOPHEN 500 MG TABLET (FP) PO ONE ×2 (15:10→17:59)
[2024-03-24 15:11] LABS: ALBUMIN 3.3 g/dl (3.4-5.0); ANION GAP 6 mmol/L (4-13); BLOOD UREA NITROGEN 23.7 mg/dL (7-18); CO2 25 mmol/L (21-32); GLUCOSE,RANDOM 97 mg/dL (74-106)
[2024-03-24 15:14] LABS: CREATININE 1.2 mg/dL (0.55-1.3); SGOT/AST 37 U/L (15-37); SGPT/ALT 40 U/L (13-61)
[2024-03-24 15:15] LABS: TOT PROT 6.8 g/dl (6.4-8.2)
[2024-03-24 15:16] LABS: BILIRUBIN,TOTAL 0.5 mg/dL (0.2-1)
[2024-03-24 15:17] LABS: ALK PHOS 93 U/L (45-117)
[2024-03-24] MEDS: ACETAMINOPHEN 325 MG TABLET (FP) PO ONE (18:08)
[2024-03-24 22:33] VITALS: BP 106/74; PULSE 88; RESP 17; TEMP 98.9
== END 2024-03-24 21:12 | disposition short-term general hospital (02) ==
LOC: JER 11:47
DX: S06.6X0A Traumatic subarachnoid hemorrhage without loss of consciousness, initial encounter (principal); S06.5X0A Traumatic subdural hemorrhage without loss of consciousness, initial encounter; W19.XXXA Unspecified fall, initial encounter; Z20.822 Contact with and (suspected) exposure to COVID-19
CPT/HCPCS: 0241U-QW; 36415; 70450-TC; 71045-TC-FY; 72125-TC; 73030-TC-LT-FY; 73110-TC-LT-FY; 73130-TC-LT-FY; 73502-TC-LT-FY; 73521-TC-FY; 80053; 80307; 82550; 82553; 83735; 84484; 85025; 85610; 85730; 93005; 93010; 99285-25